=== PATIENT | female | born 1965 | race Two or more races ===

== ENCOUNTER 2016-09-25 11:59 | Inpatient (IN) | payer SELFPAY ==
[~2016-09-25] VITALS: Ht 167.6 cm; Wt 73.7 kg
[2016-09-25 12:39] LABS: Basophils # (auto) 0.1 uL; Basophils % (auto) 0.6 % (0.0-2.0); Eosinophils # (auto) 0.4 uL; Hematocrit 49.9 % (36.0-46.0); Hemoglobin 16.5 g/dL (12.2-16.2); Lymphocytes # (auto) 2.5 uL; Lymphocytes % (auto) 27.4 % (10.0-50.0); Mean Corpuscular Hemoglobin 30.1 pg (28.0-32.0); Mean Corpuscular Hgb Conc. 33.1 g/dL (32.0-36.0); Mean Corpuscular Volume 90.9 fL (80.0-100.0); Mean Platelet Volume 9.6 fL (7.4-10.4); Monocytes # (auto) 0.6 uL; Monocytes % (auto) 6.5 % (0.0-12.0); Neutrophils # (auto) 5.7 uL; Neutrophils % (auto) 61.5 % (37.0-80.0); Platelet Count (auto) 224 10^3/uL (140-450); White Blood Cell 9.2 10^3/uL (4.4-10.8)
[2016-09-25 12:57] LABS: Albumin 4.1 g/dL (3.4-5.0); Alkaline Phosphatase 98 U/L (45-117); Anion Gap 12 (5-15); Aspartate Aminotransferase 15 U/L (15-37); BUN/Creatinine Ratio 15.3; Bilirubin, Total 0.5 mg/dL (0.2-1.0); Blood Urea Nitrogen 11 mg/dL (7-18); Calcium 9.4 mg/dL (8.5-10.1); Carbon Dioxide 26 mmol/L (21-32); Chloride 100 mmol/L (98-107); GFR African American 111 mL/min; GFR Non-African American 92 mL/min; Glucose 270 mg/dL (74-106); Magnesium 2.1 mg/dL (1.6-2.6); Potassium 4.1 mmol/L (3.5-5.1); Sodium 138 mmol/L (136-145); Total Protein 8.1 g/dL (6.4-8.2)
[2016-09-25] MEDS ORDERED: ONDANSETRON HCL 4 MG/2 ML VIAL IM ONE (13:45)
[2016-09-25] MEDS ORDERED: HYDROmorphone HCL 2 MG/ML VL IM ONE (13:45)
[2016-09-25] MEDS ORDERED: ASPirin 81 mg TAB PO ONE (14:00)
[2016-09-25 14:08] LABS: Amylase 56 U/L (25-115)
[2016-09-25] MEDS ORDERED: HYDROmorphone HCL 2 MG/ML VL IV ONE (14:30)
[2016-09-25] MEDS ORDERED: ONDANSETRON HCL 4 MG/2 ML VIAL IV ONE (14:30)
[2016-09-25 15:19] LABS: Urine Bilirubin Negative (Negative); Urine Blood Negative /uL (Negative); Urine Color Yellow (Yellow); Urine Ketone Negative (Negative); Urine Nitrite Negative (Negative); Urine RBC 3 /hpf (0 - 4); Urine Squamous Epithelial Cell FEW /hpf (<5); Urine Urobilinogen Normal (Negative)
[2016-09-25 15:20] LABS: Urine Glucose 4+ mg/dL (Normal)
[2016-09-25] MEDS ORDERED: diphenhdrAMINE HCL 50 MG/1 ML VL IV ONE (15:30)
[2016-09-25] MEDS ORDERED: SODIUM CHLORIDE 0.9% 1,000 ML IV ONE (16:30)
[2016-09-25] MEDS ORDERED: ACETAMINOPHEN 500 MG TAB PO PRN (17:30)
[2016-09-25] MEDS ORDERED: TEMAZEPAM 15 MG CAP PO PRN (17:30)
[2016-09-25] MEDS ORDERED: cefTRIAXone 1GM/50ML D5W 50 ML IV ONE (17:30)
[2016-09-25] MEDS ORDERED: DEXTROSE (50%) 50ML SYRG IV PRN (17:30)
[2016-09-25] MEDS ORDERED: LORazepam 0.5 MG TAB PO PRN (17:30)
[2016-09-25] MEDS ORDERED: ALBUTEROL SULF 2.5 MG/0.5ML(0.5%) NEB SOLN NEB PRN (21:15)
[2016-09-25 22:07] VITALS: BP 144/78
[2016-09-25] MEDS: ACCU-CHEK COMFORT CURVE STRIP VI SCH (22:31)
[2016-09-25] MEDS: SODIUM CHLORIDE 0.9% 1,000 ML IV SCH (22:31)
[2016-09-25] MEDS: FAMOTIDINE 20 MG TAB PO SCH (22:32)
[2016-09-25] MEDS: InsuLIN REG 1unit/0.01ml Soln (100units/ml) SC SCH (22:32)
[2016-09-25] MEDS: MORPHINE SULF INJ 2 MG/ML SYRINGE 1ML IV PRN (22:33)
[2016-09-26] VITALS (7 sets, daily range): BP systolic 128–160; BP diastolic 71–81
[2016-09-26] MEDS: SODIUM CHLORIDE 0.9% 1,000 ML IV SCH ×2 (03:26→13:49)
[2016-09-26 06:08] LABS: Basophils # (auto) 0 uL; Basophils % (auto) 0.3 % (0.0-2.0); Eosinophils # (auto) 0.5 uL; Eosinophils % (auto) 5.9 % (0.0-7.0); Hematocrit 43.3 % (36.0-46.0); Hemoglobin 14.5 g/dL (12.2-16.2); Lymphocytes # (auto) 3.3 uL; Lymphocytes % (auto) 36.1 % (10.0-50.0); Mean Corpuscular Hemoglobin 30.6 pg (28.0-32.0); Mean Corpuscular Hgb Conc. 33.5 g/dL (32.0-36.0); Mean Corpuscular Volume 91.5 fL (80.0-100.0); Mean Platelet Volume 9.4 fL (7.4-10.4); Monocytes # (auto) 0.8 uL; Monocytes % (auto) 8.8 % (0.0-12.0); Neutrophils # (auto) 4.4 uL; Neutrophils % (auto) 48.9 % (37.0-80.0); Platelet Count (auto) 210 10^3/uL (140-450); Red Cell Distribution Width 14.2 % (11.6-16.0); White Blood Cell 9.1 10^3/uL (4.4-10.8)
[2016-09-26 06:12] LABS: Albumin 3.2 g/dL (3.4-5.0); Potassium 3.6 mmol/L (3.5-5.1)
[2016-09-26 06:18] LABS: Bilirubin, Total 0.3 mg/dL (0.2-1.0); Total Protein 6.4 g/dL (6.4-8.2)
[2016-09-26] MEDS: IPRATROPIUM BROM 0.5 MG/2.5ML INH SOL NEB SCH ×4 (06:28→18:38)
[2016-09-26] MEDS: ALBUTEROL SULF 2.5 MG/0.5ML(0.5%) NEB SOLN NEB SCH ×4 (06:28→18:38)
[2016-09-26] MEDS: InsuLIN REG 1unit/0.01ml Soln (100units/ml) SC SCH ×4 (06:33→22:23)
[2016-09-26] MEDS: ACCU-CHEK COMFORT CURVE STRIP VI SCH ×4 (06:34→21:44)
[2016-09-26] MEDS: HYDROcodone-ACET 5/325MG TAB PO PRN (06:34)
[2016-09-26 06:44] LABS: Cholesterol 214 mg/dL (<200); HDL Cholesterol 40 mg/dL (40-59); LDL Cholesterol 147 mg/dL (<100); Triglycerides 172 mg/dL (<150)
[2016-09-26 06:46] LABS: Amylase 48 U/L (25-115)
[2016-09-26] MEDS ORDERED: cefTRIAXone 1GM/50ML D5W 50 ML IV SCH (09:00)
[2016-09-26] MEDS: FAMOTIDINE 20 MG TAB PO SCH ×2 (09:47→21:44)
[2016-09-26] MEDS: cefTRIAXone 1GM/50ML D5W 50 ML IV SCH (09:49)
[2016-09-26] MEDS: PROMETHAZINE HCL 25 MG/ML 1ML IV PRN ×2 (12:07→17:41)
[2016-09-26] MEDS: MORPHINE SULF INJ 2 MG/ML SYRINGE 1ML IV PRN ×2 (12:07→17:41)
[2016-09-26] MEDS: SUCRALFATE 1 GM/10 ML ORAL SUSP PO SCH ×2 (17:41→21:44)
[2016-09-27] VITALS (8 sets, daily range): BP systolic 116–172; BP diastolic 60–94
[2016-09-27] MEDS: IPRATROPIUM BROM 0.5 MG/2.5ML INH SOL NEB SCH ×5 (00:47→20:06)
[2016-09-27] MEDS: ALBUTEROL SULF 2.5 MG/0.5ML(0.5%) NEB SOLN NEB SCH ×3 (00:47→20:06)
[2016-09-27] MEDS: SUCRALFATE 1 GM/10 ML ORAL SUSP PO SCH ×4 (05:56→21:48)
[2016-09-27] MEDS: SODIUM CHLORIDE 0.9% 1,000 ML IV SCH (05:57)
[2016-09-27] MEDS: ACCU-CHEK COMFORT CURVE STRIP VI SCH ×4 (06:17→21:48)
[2016-09-27] MEDS: InsuLIN REG 1unit/0.01ml Soln (100units/ml) SC SCH ×4 (06:30→21:48)
[2016-09-27] MEDS: cefTRIAXone 1GM/50ML D5W 50 ML IV SCH (09:05)
[2016-09-27] MEDS: FAMOTIDINE 20 MG TAB PO SCH ×2 (09:05→21:48)
[2016-09-27] MEDS: PROMETHAZINE HCL 25 MG/ML 1ML IV PRN ×2 (09:05→15:11)
[2016-09-27] MEDS: MORPHINE SULF INJ 2 MG/ML SYRINGE 1ML IV PRN ×2 (09:06→15:11)
[2016-09-27] MEDS ORDERED: amLODIPine BESYLATE 5 MG TAB PO ONE (14:45)
[2016-09-27] MEDS ORDERED: NIFEdipine 10 MG CAP PO PRN (14:45)
[2016-09-27] MEDS: HYDROcodone-ACET 5/325MG TAB PO PRN (21:48)
[2016-09-28] VITALS (7 sets, daily range): BP systolic 117–155; BP diastolic 66–88
[2016-09-28] MEDS: ALBUTEROL SULF 2.5 MG/0.5ML(0.5%) NEB SOLN NEB SCH ×4 (01:30→18:24)
[2016-09-28] MEDS: IPRATROPIUM BROM 0.5 MG/2.5ML INH SOL NEB SCH ×4 (01:30→18:24)
[2016-09-28] MEDS: SUCRALFATE 1 GM/10 ML ORAL SUSP PO SCH ×4 (06:28→22:00)
[2016-09-28] MEDS: InsuLIN REG 1unit/0.01ml Soln (100units/ml) SC SCH ×4 (06:28→21:56)
[2016-09-28] MEDS: ACCU-CHEK COMFORT CURVE STRIP VI SCH ×4 (06:28→22:00)
[2016-09-28] MEDS ORDERED: BARIUM SULFATE 98% 340 GM PWDR ONE (08:39)
[2016-09-28] MEDS ORDERED: EZ-GAS II GRANULES (RADIOLOGY USE) PO ONE (08:39)
[2016-09-28] MEDS ORDERED: amLODIPine BESYLATE 5 MG TAB PO SCH (10:00)
[2016-09-28] MEDS: SODIUM CHLORIDE 0.9% 1,000 ML IV SCH ×2 (11:00→15:11)
[2016-09-28] MEDS: FAMOTIDINE 20 MG TAB PO SCH ×2 (11:03→22:00)
[2016-09-28] MEDS: cefTRIAXone 1GM/50ML D5W 50 ML IV SCH (11:03)
[2016-09-28] MEDS: HYDROcodone-ACET 5/325MG TAB PO PRN ×2 (11:09→18:05)
[2016-09-28] MEDS ORDERED: LISINOPRIL 20 MG TAB PO ONE (13:30)
[2016-09-28] MEDS: metFORMIN HYDROCHLORIDE 500 MG TAB PO SCH (18:00)
[2016-09-29] MEDS: SODIUM CHLORIDE 0.9% 1,000 ML IV SCH (03:46)
[2016-09-29 05:30] VITALS: BP 121/96
[2016-09-29] MEDS: ALBUTEROL SULF 2.5 MG/0.5ML(0.5%) NEB SOLN NEB SCH ×3 (05:38→11:13)
[2016-09-29] MEDS: IPRATROPIUM BROM 0.5 MG/2.5ML INH SOL NEB SCH ×3 (05:38→11:13)
[2016-09-29] MEDS: metFORMIN HYDROCHLORIDE 500 MG TAB PO SCH (06:08)
[2016-09-29] MEDS: SUCRALFATE 1 GM/10 ML ORAL SUSP PO SCH (06:09)
[2016-09-29] MEDS: ACCU-CHEK COMFORT CURVE STRIP VI SCH ×2 (06:09→11:30)
[2016-09-29] MEDS: InsuLIN REG 1unit/0.01ml Soln (100units/ml) SC SCH ×2 (06:12→11:30)
[2016-09-29 06:56] LABS: BUN/Creatinine Ratio 25.9; Calcium 8.6 mg/dL (8.5-10.1); Potassium 4.2 mmol/L (3.5-5.1)
[2016-09-29 09:00] VITALS: BP 150/87
[2016-09-29] MEDS: HYDROcodone-ACET 5/325MG TAB PO PRN (09:55)
[2016-09-29] MEDS: FAMOTIDINE 20 MG TAB PO SCH (09:56)
[2016-09-29] MEDS ORDERED: LISINOPRIL 20 MG TAB PO SCH (10:00)
[2016-09-29] MEDS ORDERED: SUC1LQ PO (11:27)
[2016-09-29] MEDS ORDERED: LISI-646 PO (11:27)
[2016-09-29] MEDS ORDERED: PANT40TA2 PO (11:27)
[2016-09-29] MEDS ORDERED: METF500T PO (11:27)
[2016-09-29] MEDS ORDERED: ATOR20TA PO (11:31)
[2016-09-29 12:29] VITALS: BP 150/87
[2016-09-29 12:45] VITALS: BP 150/80
== END 2016-09-29 15:00 | disposition home or self-care (01) | DRG 392 ==
LOC: ER 12:06 → OVERFLOW 12:07 → WEST WING 19:48
PROVIDERS: ADMIT Internal Medicine; ATTEND Internal Medicine
DX: K29.70 Gastritis, unspecified, without bleeding (principal); N39.0 Urinary tract infection, site not specified; K21.9 Gastro-esophageal reflux disease without esophagitis; F17.210 Nicotine dependence, cigarettes, uncomplicated; E86.0 Dehydration; E11.65 Type 2 diabetes mellitus with hyperglycemia; I10 Essential (primary) hypertension; E78.5 Hyperlipidemia, unspecified; K76.0 Fatty (change of) liver, not elsewhere classified; F41.9 Anxiety disorder, unspecified; Z88.0 Allergy status to penicillin; Z91.19 Patient's noncompliance with other medical treatment and regimen; Z83.3 Family history of diabetes mellitus; Z82.49 Family history of ischemic heart disease and other diseases of the circulatory system
CPT/HCPCS: 36415; 71020; 74176; 74247; 76705; 80048; 80053; 80061; 81001; 82150; 82378; 82962; 83036; 83690; 83735; 84484; 85025; 85652; 86141; 87081; 87086; 93005; 94640; 96361; 96365; 96375; 99291; J0696; J1815; J2405